=== PATIENT | female | born 1985 | race Caucasian/White ===

== ENCOUNTER 2016-10-18 17:33 | Emergency (ER) | payer SELFPAY ==
[2016-10-18 18:17] LABS: BASOPHIL 0.5 % (0-2); EOSINOPHIL 2.4 % (0-5); HCT 41.1 % (37.0-47.0); HGB 14.1 g/dl (12.5-16.0); LYMPHOCYTE 38.3 % (15-48); MCH 29.3 pg (25.0-31.0); MCHC 34.3 g/dL (32.0-36.0); MCV 85.3 fL (78.0-100.0); MONOCYTE 7.6 % (0-12); NEUTROPHIL 51.2 % (41-80); PLT 220 K/uL (150-400); RBC 4.82 M/uL (4.20-5.40); RDW 12.8 % (11.5-14.0); WBC 7.9 K/uL (4.0-10.5)
[2016-10-18 18:18] LABS: BILIRUBIN NEGATIVE (NEGATIVE); BLOOD TRACE-INTACT Ery/uL (NEGATIVE); CLARITY CLEAR (CLEAR); COLOR COLORLESS (YELLOW); GLUCOSE (U) NORMAL (NORMAL); KETONE (U) NEGATIVE (NEGATIVE); LEUKOCYTES NEGATIVE Leu/uL (NEGATIVE); NITRITE NEGATIVE (NEGATIVE); PROTEIN NEGATIVE (NEGATIVE); SPECIFIC GRAVITY 1.015 (1.001-1.030); UROBILINOGEN 0.2 mg/dL (0.2-1.0); pH 8.5 (5.0-9.0)
[2016-10-18 18:23] LABS: MUCOUS MODERATE; URINARY RBC RARE; URINARY WBC RARE
[2016-10-18 18:33] LABS: ALBUMIN 4.4 g/dL (3.5-5.0); BILIRUBIN - TOTAL 0.3 mg/dL (0.1-1.0); CREATININE 0.9 mg/dL (0.5-1.0); GLOBULIN (CALCULATION) 2.5 g/dL (2.2-4.2); POTASSIUM 3.8 mmol/L (3.5-5.1); TOTAL PROTEIN 6.9 g/dL (6.4-8.3)
== END 2016-10-18 20:22 | disposition home or self-care (01) ==
LOC: FER 17:33
PROVIDERS: Nurse Practitioner Family
DX: R10.9 Unspecified abdominal pain (principal); Z98.890 Other specified postprocedural states
CPT/HCPCS: 36415; 80053; 81001; 82150; 83690; 85025; J1170; J2405